=== PATIENT | male | born 1935 | race Caucasian/White ===

== ENCOUNTER 2018-03-29 07:43 | Day surgery (SDC) | END 2018-03-29 15:09 | disposition home or self-care (01) ==

== ENCOUNTER → 2018-11-14 | Outpatient (CLI) | payer MEDICARE, OTHER ==
[~2018-11-14] MED LIST: BISACODYL; FLOMAX; NAPROXEN
== END | disposition home or self-care (01) ==
LOC: LAB 14:30
PROVIDERS: ATTEND Internal Medicine
DX: R93.1 Abnormal findings on diagnostic imaging of heart and coronary circulation (principal); R06.02 Shortness of breath
CPT/HCPCS: 80048

== ENCOUNTER → 2018-11-28 | Outpatient (CLI) | payer MEDICARE, OTHER ==
[~2018-11-28] MED LIST changes: +IOHEXOL 100 ML ONE; +METOPROLOL (XL) 100 MG TAB PO ONE; +METOPROLOL 100 MG TAB ONE; +NITROGLYCERIN AEROSOL (4.9 GM) ONE; +NITROGLYCERIN AEROSOL (4.9 GM) SL PRN; +SOD CHLORIDE 0.9% 100 ML ONE
== END | disposition home or self-care (01) ==
LOC: C/S 09:57
PROVIDERS: ATTEND Internal Medicine
DX: R06.02 Shortness of breath (principal); R93.1 Abnormal findings on diagnostic imaging of heart and coronary circulation
CPT/HCPCS: 75571; 75574; Q9967